=== PATIENT | female | born 1975 | race Caucasian/White ===

== ENCOUNTER 2016-07-25 05:47 | Inpatient (IN) | payer OTHER ==
[~2016-07-25] VITALS: Ht 165.1 cm; Wt 74.8 kg
[2016-07-25] MEDS ORDERED: Benzocaine-Menthol Lozenge 2/Pkg PO PRN ×2 (10:05→11:30)
[2016-07-25] MEDS ORDERED: Alum-Mag Hydrox-Simeth 30 mL Suspension PO PRN ×2 (10:05→11:30)
[2016-07-25] MEDS ORDERED: Magnesium Hydroxide 10 mL Oral Concentration PO PRN ×2 (10:05→11:30)
[2016-07-25] MEDS ORDERED: hydrOXYzine Pamoate 25 mg Capsule PO PRN (11:30)
[2016-07-25 13:35] VITALS: BP 149/105; PULSE 87; RESP 16
--- NOTE | 2016-07-25 14:00 | NUR ---
Nursing Admission Note: Patient arrived on the unit on a gurney from [facility] escorted by EMS and security. Has been REBEKAH'd on a 72 hour hold after a suicide attempt to jump [place] of [place] in which [employer] intervened. Patient reportedly has been drinking a bottle of wine a day and has attempted suicide in the past with pills. States she has been sober for 3 days prior to attempt. Drinks wine to "dull the pain." States her sister has custody of her daughter. Cooperative with admission process. Ate a snack after admission complete. Good appetite at lunch. Flat affect. Will monitor mood and behavior.
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
--- NOTE | 2016-07-25 14:17 | NUR ---
spiritual care: pt request brief visit pt welcomed prayer.
--- NOTE | 2016-07-25 19:51 | NUR ---
Observations 00 to 1930 Pt arrived at 0940. Pt completed admission process and signed all paperwork. Pt was oriented to the unit, given scrubs and shown to room 229. Pt affect and mood was isolative, sullen, depressed and flat. Pt speech was guarded and eye contact was ok. Pt declined to go to groups and unit activities. Pt was minimally social with staff and peers when approached. Pt give short responses when approached. Pt attended meals in D.R. and ate 100% of her meals. Pt maintained behavior throughout the shift. Pt was polite, pleasant and cooperative. Pt was in her room during free time and keeps to herself. Pt took a shower and attended to ADL's. Pt was observed every 15 minutes throughout the shift as ordered.
[2016-07-25] MEDS: LORazepam 1 mg Tablet PO PRN (21:09)
--- NOTE | 2016-07-26 04:17 | NUR ---
Nursing Noc Reported REBEKAH patient on July 25 at 0435 as danger to self. Apparently patient attempted to jump on [address] [address] and was arrested during attemt by park rangers. Pt presents pleasant and cooperative entertaining herself with TV and snacks this evening. Pt participated in evening wrap up group, but did not have goal for today. Continuing to monitor mood behavior,sleep times and medications. [facility]
--- NOTE | 2016-07-26 05:40 | NUR ---
Pt out on unit in evening for group and movie. Noted not sleeping well for many days and hoping things got better. Asleep 2230. Pt observed every 15 minutes as ordered.
[2016-07-26 11:44] VITALS: BP 136/86; PULSE 77; RESP 16
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
--- NOTE | 2016-07-26 17:10 | NUR ---
[id number]. nurs. S: "I haven't forgiven myself I keep having these thoughts that they are coming to get me, it's very real ..I used to drink to forget... O: Pt isolating in bedrm until enc. to come out and eat in afternoon and to help her stop her ruminations, fears and flashbks to past when undertook identity and prosecuted, although now past those proceedings still has periods of being overwhelmed by that experience with delusional and paranoid ideation. Pt reporting that she can maintain no harm contract on unit, pt asking re what she needs to do to be discharged on Thursday and asking about letting her work know about her hospitalization. Pt reports that her cousin is looking after her daughter. P:CHARLES Addendum: 07/26/16 at 1740 by DIDIER LORENZ RN note, missing word above, following identity, should be 'theft'.
--- NOTE | 2016-07-26 18:55 | PCM.PNPSY ---
Subjective Date of Service Jul 26, 2016 Subjective Patient states that she has not had flashbacks or nightmares but has been reclusive to room. When asked about discharge planning, the patient reported, "My cousin has arranged a place, I think it's [facility]. I took out a loan on an ex-boyfriends account. I am going to [facility] for 5 years." Patient is unsure whether she has gone to court or been convicted of any crime. Sleep: 6.5 horus Appetite: poor Suicidal and homicidal ideation: denies Auditory hallucinations: denies Visual hallucinations: denies Other Psychotic Symptoms: possible delusions as above. Anxiety: 0/10 Depression: 7 Current Medications Current Medications Hydroxyzine Pamoate 50 mg Q4H PRN PO Last administered on 07/25/16 10:42; Admin Dose 50 MG; Start 07/25/16 at 10:05 Ibuprofen 600 mg Q6H PRN PO Last administered on 07/25/16 21:11; Admin Dose 600 MG; Start 07/25/16 at 10:05 Lorazepam 1 mg Q4H PRN PO Last administered on 07/25/16 21:09; Admin Dose 1 MG ; Start 07/25/16 at 10:05 Nicotine 1 patch DAILY TOPICAL Last administered on 07/26/16 08:29; Admin Dose 1 PATCH; Start 07/26/16 at 08:30 Nicotine Polacrilex 2 mg Q4H PRN PO Last administered on 07/25/16 21:09; Admin Dose 2 MG; Start 07/25/16 at 10:05 Zolpidem Tartrate START WITH 5 MG AND MAY REP... HS PRN PO Last administered on 07/25/16 21:10; Admin Dose 5 MG; Start 07/25/16 at 10:05 Mental Status Exam Vital Signs Vital Signs Date Time Temp Pulse Resp B/P Pulse Ox O2 Delivery O2 Flow Rate FiO2 07/26/16 11:44 36.6 77 16 136/86 Appearance: Neat/well groomed Attitude: Cooperative Behavior: Overtly anxious Affect: Blunted Mood: Depressed Thought Process/Associations: Tangential Speech Production: Paucity Speech Rate: Lags/Latency Speech Articulation: Normal Thought Content: Negativistic Danger to Self/Suicidal Ideati: None Danger to Others: None Delusions: Paranoid (Endorses possible) Hallucinations: Auditory (Denies), Visual (Denies) Consciousness: Somnolent Orientation: Person, Place, Situation Memory: Short Term Memory (Impaired) Estimate Intellectual Function: Average Attention/Concentration & Cogn: Impaired Insight: Limited Judgement: Poor Mental Health Plan The patient is a 41-year-old female from [place]. The patient was admitted under REBEKAH status with transfer from [facility] after significant near attempt of suicide including jumping [place] [address]. Patient originally felt to be non-psychotic but report during rounds does not appear to be reality based, but will need clarification. [place] AXIS I 1. Major depressive disorder, recurrent type, possible psychotic 2. Posttraumatic stress disorder, chronic. 3. Alcohol use disorder in remission. AXIS II Rule out cluster B personality features. AXIS III None. AXIS IV Stressors are noted for previous alcohol usage, life transition. AXIS V Global assessment of functioning of current 35. Treatments 1. The patient is admitted to the inpatient unit and will be provided a safe and secure environment. 2. The patient is denying current active suicidality and is not in need of a one-to-one at this time. 3. The patient is encouraged to participate with group and milieu activities. 4. The patient will be seen by the treatment team on a daily basis to assess symptoms, side effects and response to treatment. 5. The patient will be started on mirtazapine 30mg po nightly for depression. 6. Consider antipsychotic if report of [facility] time has no basis in reality. 7. Anticipated length of stay is 7-10 days. John Easton MD Jul 26, 2016 15:11
--- NOTE | 2016-07-26 22:26 | NUR ---
Received in evening shift report that pt. had been in bed all of day shift and had missed breakfast and lunch. Received pt. in bed awake and tearful. Pt reported that she had nothing to live for and wanted to . No one cares about me. Pts speech became somewhat pressured and she launched into a story in which she stated she was assisted with obtaining a job and an apartment by someone who had an ulterior motive. She stated that there is a conspiracy against her, and her family and others want to see her put in [facility]. Once I confessed to the police they ripped the rug out from under me. Pt then asked if I had seen "the videos". Later in the shift pt approached me and asked if I was the person she had spoken to and what the conversation was. She said she did not remember the conversation and reported feeling like she has had a premonition and that she was taken out of her body. She stated was losing track of time and did not know what was real. She stated she thinks she had last seen her daughter on Thursday but couldn't be sure. Pt clearly having difficulty processing information, is confused and expressed delusional content. Admits to SI but has no plan at this time and agreed to come to staff if having urges to harm self.
[2016-07-26] MEDS: LORazepam 1 mg Tablet PO PRN (22:58)
--- NOTE | 2016-07-27 02:39 | NUR ---
Observations 1900 to 0700 Pt isolated herself to her room for the night. Pt had a few phone calls last night. Pt first appeared asleep at 21:45 and was observed every 15 minutes through the night.
--- NOTE | 2016-07-27 05:38 | NUR ---
Nursing Noc Pt presents paranoid to strangers, answers questions appropriately, but does not carry conversation. Taking medications and using PRNs as prescribed. monitor behavior/emotional state, quality, times and amount of sleep, use and effect of medication.
[2016-07-27 08:57] LABS: BASOPHILS % (AUTO) 0.4 % (0-3); EOSINOPHILS % (AUTO) 2.3 % (0-5); MONOCYTES % (AUTO) 6.7 % (4-12); Mean Corpuscular Hemoglobin 28.7 pg (27.0-35.0); Mean Corpuscular Volume 87.7 fL (81-100); NEUTROPHILS % (AUTO) 67.9 % (40-74); Platelet Count 281 bil/L (150-400)
--- NOTE | 2016-07-27 15:34 | PCM.PNPSY ---
Subjective Date of Service Jul 27, 2016 Subjective The patient reports the only side effect from mirtazapine so far is that she still feels drowsy this morning. Regarding report yesterday about feeling she might be going to jail, she stated that this is due to her flashbacks to her identity theft charges in 2006 and her fear at that time of going to jail. The patient reports that she feels that her depression is somewhat improved with addition of mirtazapine. She denies that she will be going to jail. Sleep: 8.25 hours per staff, "on and off" per patient. Appetite: She reports that she ate lunch and dinner last night and typically does not eat breakfast and has no appetite for breakfast today but plans to eat lunch. Suicidal and homicidal ideation: denies Auditory hallucinations: denies Visual hallucinations: denies Other Psychotic Symptoms: None Anxiety: 07/11 Depression: 11/08, yesterday 12/08 Current Medications Current Medications Mirtazapine 30 mg HS PO Last administered on 07/26/16 21:10; Admin Dose 30 MG; Start 07/26/16 at 21:00 Nicotine 1 patch DAILY TOPICAL Last administered on 07/27/16 08:23; Admin Dose 1 PATCH; Start 07/26/16 at 08:30 Mental Status Exam Appearance: Neat/well groomed Attitude: Cooperative Behavior: Overtly anxious Affect: Blunted Mood: Depressed Thought Process/Associations: Logical/Sequential, Goal Directed Speech Production: Paucity Speech Rate: Normal Speech Articulation: Normal Thought Content: Appropriate Danger to Self/Suicidal Ideati: None Danger to Others: None Delusions: Paranoid (Denies) Hallucinations: Auditory (Denies), Visual (Denies) Consciousness: Somnolent Orientation: Person, Place, Situation Memory: Short Term Memory (Impaired) Estimate Intellectual Function: Average Attention/Concentration & Cogn: Impaired Insight: Limited Judgement: Limited Result Diagram: 07/27/1681207/27/16812 Mental Health Plan The patient is a 41-year-old female from [place]. The patient was admitted under REBEKAH status with transfer from [facility] after significant near attempt of suicide including jumping [place] [address]. The patient's reported fear of going to jail appears to be related to a flashback rather than psychotic symptoms. She appears to be responding to mirtazapine. [place] AXIS I 1. Major depressive disorder, recurrent type, without psychosis 2. Posttraumatic stress disorder, chronic. 3. Alcohol use disorder in remission. AXIS II Rule out cluster B personality features. AXIS III None. AXIS IV Stressors are noted for previous alcohol usage, life transition. AXIS V Global assessment of functioning of current 35. Medications Mirtazapine 30 mg nightly Lorazepam 1 mg every 4 hours when necessary anxiety or agitation Zolpidem 5 mg nightly when necessary insomnia Hydroxyzine 50 mg every 4 hours when necessary anxiety or agitation Treatments 1. The patient is admitted to the inpatient unit and will be provided a safe and secure environment. 2. The patient is denying current active suicidality and is not in need of a one-to-one at this time. 3. The patient is encouraged to participate with group and milieu activities. 4. The patient will be seen by the treatment team on a daily basis to assess symptoms, side effects and response to treatment. 5. Continue mirtazapine 30mg po nightly for depression. 6. Anticipated length of stay is 7-10 days. John Easton MD Jul 27, 2016 15:34
--- NOTE | 2016-07-27 17:31 | NUR ---
Tax Record Clerk./ cLauriemLaurie S.:"I feel a little bit sleepy." O.: met with pt. and MD together in pt.'s room. She was in bed sleeping in the middle of the morning. She was able to talk briefly. She complained about feeling sleepy. She complained about back pain. She denied SI/HI, denied AH/VH. She rated anxiety at 2/10 and depression at 6/10. She continued having flashbacks about going to [facility]. Her cousin came to visit and she provided additional information regarding pt.'s situation. Cousin is very supportive and wanted to know about pt.'s treatment plan. A.: pt. is cooperative, isolative, quiet, has a flat affect. P.: monitor behavior, monitor for meds intake, follow care plan.
--- NOTE | 2016-07-27 18:24 | NUR ---
[id number]. nurs. S: "I have had a lot of losses..how long would ETOH tx take....? who is the public improvement inspector... I was just so tired I had not slept in days... I feel a lot better...." O: Pt at times continuing to express paranoid and delusional ideation to staff and family re her responsibility for crimes and fears that police are after her and staff involved. At other times pt denying any of these concerns. Pt visited by her cousin who is caring for pt's 7 y.o. and was both suspicious of and expressing trust to cousin during her visit. P: pt given motrin for lower backpain in afternoon partially effective, Pt refused offer of egg crate mattress. Pt out more in milieu later part of day but not seeking interaction with peers. On phone with family and daughter. Pt ambivalent not able to sign DAYA yet for cousin .main support person.. P:CHARLES
--- NOTE | 2016-07-28 04:23 | NUR ---
Observations from [id number] Pt isolated in her room all evening. Pt did not attend wrap up group and appeared asleep at 2130 and has remained asleep throughout the night. Pt has been monitored every 15 minutes as directed.
--- NOTE | 2016-07-28 06:01 | NUR ---
Nursing Noc Pt has remained a quiet presence on the unit. Minimal interaction with peers and staff. She briefly watched TV and had a snack, otherwise she spent a lot of time in her room. She took scheduled medication and prn Motrin 600mg for "chronic low back pain" rated 7/10. Ambien 5mg po prn received for sleep with good effect. Pt remains vague & guarded upon interaction with this nursing staff. No noted or expressed SI this shift. She has remained asleep this shift since 2129 with no noted distress or awakening per protocol checks. Total sleep over 8.5 hours.
[2016-07-28 10:24] VITALS: BP 127/90; PULSE 72; RESP 10
--- NOTE | 2016-07-28 13:41 | NUR ---
Nursing note 7-3pm O) isolates in room, has lower back pain 5/10 decreasing to 3/10 after Motrin , states depression and anxiety 3/10 denies SI, PRN nicotine lozenge given twice, dressed and well groomed, pleasant on approach good eye contact A) cooperative, isolates, guarded, denies SI P) monitor for safety and encourage participation in treatment
--- NOTE | 2016-07-28 14:39 | NUR ---
Magnetic Resonance Technologist./ c.m. S.:"I'm ok, I'm really ok..." O.: met with pt. in a private room. She slept "ok" last night. She denied SI/HI, denied AH/VH, denied paranoid/delusional thoughts, denied "flashbacks". She rated depression at 3/10 and anxiety at 3/10. She talked about her alcohol abuse and how it effected all her life and life of her family members. She agreed to go to [facility] and outpatient alcohol treatment if needed. She said that she felt "better" overall. She talked about her SA and what led to that moment. "It was just a cry for help because I could kill myself multiple times prior to that. I love my daughter." She was concerned about her future as a parent and her job. She was in and out of her room but mostly keeping to herself. A.: pt. is cooperative, isolative, very tearful and looks anxious. She is much more clear in her thoughts today. P.: monitor behavior, explore options of [facility], work on anxiety and stress management skills, explore options of outpatient treatment, possible court tomorrow; follow care plan.
--- NOTE | 2016-07-28 16:17 | NUR ---
spiritual care: follow up conversational visit. pt reflected on recent experiences, "very kind" staff and sense of emotional stability with help of medications. Pt explored her thoughts about grief, hope, sense of purpose and love deysi toward dtr. Pt thoughtful throughout and shared her sense of spirituality as it relates to her coping/healing.
--- NOTE | 2016-07-28 16:55 | PCM.PNPSY ---
Subjective Date of Service Jul 28, 2016 Subjective I spent 30 minutes both reviewing treatment plan and providing supportive/ educational psychotherapy. I spent more than 50% of the time counseling the patient. I reviewed the treatment plan with the patient and discussed options available including the potential risks, benefits and side effects. Mary reports a symptoms of severe depression and significant difficulty with mood stability. The intensity of her suicidal ideation is markedly decreased. Staff reports that she has been isolative and not able to participate well in one-to-one unit and group activities. She slept 8.5 hours and denies acute suicidal ideation. She denies medication side effects. Patient was able to identify her medications and what they were used to treat. She appeared to understand the need for medications by the questions she asked during our discussion. Current Medications Current Medications Mirtazapine 30 mg HS PO Last administered on 07/27/16t 20:35; Admin Dose 30 MG; Start 07/26/16 at 21:00 Mental Status Exam Vital Signs Vital Signs Date Time Temp Pulse Resp B/P Pulse Ox O2 Delivery O2 Flow Rate FiO2 07/28/16 10:24 35.8 72 10 127/90 Appearance: Neat/well groomed Attitude: Cooperative Behavior: Overtly anxious Affect: Blunted Mood: Depressed Thought Process/Associations: Logical/Sequential, Goal Directed Speech Production: Paucity Speech Rate: Normal Speech Articulation: Normal Thought Content: Appropriate Danger to Self/Suicidal Ideati: None Danger to Others: None Delusions: Paranoid (Denies) Hallucinations: Auditory (Denies), Visual (Denies) Consciousness: Somnolent Orientation: Person, Place, Situation Memory: Short Term Memory (Impaired) Estimate Intellectual Function: Average Attention/Concentration & Cogn: Impaired Insight: Limited Judgement: Limited Result Diagram: 07/27/16 0813 07/27/16 0813 Mental Health Plan Mary is a 41-year-old female who was transported to [facility] after a near attempt of suicide by trying to jump off the [place] [address]. Two park rangers prevented her from jumping and took her off of the bridge. She did attempt to jump twice as they were attempting to rescue her. She indicated that she had been feeling increasingly hopeless and worthless. She identified that she currently lives independently but previously lived with her cousin and cousin's boyfriend for approximately four years. She reports that she has a 7-year-old daughter also in her current care. She reports that she does have a previous history of depression with treatment in her college years in [place], [place]. She indicated that she saw both a therapist and was on medication including Wellbutrin and Zoloft at that time. She reports that she has never been hospitalized on a psychiatric unit. She reports a significant willingness to engage in both individual therapy and medication treatment stating that it helped in the past and that she is ready to do it again. In reviewing her current level of depression, she admitted to feelings of hopelessness, helplessness, worthlessness. She admitted to difficulties with primary and secondary insomnia. Noted decreased concentration, feelings of apathy, amotivation and anhedonia. She admitted to fleeting suicidal thoughts over the past month and indicated that everything came to the surface Today to 07/28/16 the intensity of her suicidal ideation is decreased but is still present. [place] AXIS I 1. Major depressive disorder, recurrent type, without psychosis 2. Posttraumatic stress disorder, chronic. 3. Alcohol use disorder in remission. AXIS II Rule out cluster B personality features. AXIS III None. AXIS IV Stressors are noted for previous alcohol usage, life transition. AXIS V Global assessment of functioning of current 35. Medications Mirtazapine 30 mg nightly Lorazepam 1 mg every 4 hours when necessary anxiety or agitation Zolpidem 5 mg nightly when necessary insomnia Hydroxyzine 50 mg every 4 hours when necessary anxiety or agitation Treatments 1. The patient is admitted to the inpatient unit and will be provided a safe and secure environment. 2. The patient is denying current active suicidality and is not in need of a one-to-one at this time. 3. The patient is encouraged to participate with group and milieu activities. 4. The patient will be seen by the treatment team on a daily basis to assess symptoms, side effects and response to treatment. 5. Continue mirtazapine 30mg po nightly for depression. 6. Anticipated length of stay is 7-10 days. Edgar House MD Jul 28, 2016 16:55
[2016-07-28] MEDS: LORazepam 1 mg Tablet PO PRN (18:40)
--- NOTE | 2016-07-28 18:51 | NUR ---
Obs Dayshift [id number] Pt is not attending all groups, little to no participation. Did attend morning meeting, quiet, little to no engagement. Pt is on the phone more than anything else. Pt asks for her phone to get numbers and goes on facebook, texting, etc.. and staff has to take the phone away. Pt has poor eye contact. Not engaging w/ any peers. Good ADL's, Good meals
--- NOTE | 2016-07-28 22:18 | NUR ---
NURSING NOTE [id number] Mood= "anxious" Affect= quiet, flat Behavior= kept to her room for much of the shift; met with hospital hearing officer, made multiple phone calls. Was a little more visible later in the evening; attended wrap-up group and then sat out in the DR for a while after but minimally social w/peers. Med compliant. Thought processes= endorses anxiety, some depression, no AH/VH/SI. Pt. is guarded and admits she has difficulty "opening up" PRNs Ativan 1 mg, Motrin @ 18:40 for 3/10 lower back pain. Ambien 5 mg @ HS
--- NOTE | 2016-07-29 01:51 | NUR ---
Observations 1900 to 0700 Pt isolated herself to her room for the night. Pt had a few phone calls last night as usual. Pt first appeared asleep at 22:00 and was observed every 15 minutes through the night.
--- NOTE | 2016-07-29 05:04 | NUR ---
canvas baster 11pm to 7am Pt slept soundly throughout the night, in no acute distress. Monitored q 15 minutes for safety,location and accountability.
--- NOTE | 2016-07-29 15:43 | NUR ---
nursing note 7am-7pm S)" I am nervous about what I am going to do after leaving here...going back into the work force If I have a job and the judgement I will face" O) states her biggest support is her friends, used portable phone to make calls, anxiety and depression 08/08, denies SI, back pain 10/08 medicated with PRN with little effect, went to court today for continuance till Thursday, cooperative, attended groups, ate meals, groomed and dressed in own clothes A) affect a little brighter with occasional smile, isolates in room, cooperative P) monitor effectiveness of medication, encourage participation in treatment
[2016-07-29] MEDS: LORazepam 1 mg Tablet PO PRN (19:49)
--- NOTE | 2016-07-29 20:32 | NUR ---
Obs Dayshift [id number] Pt was out of her room more today than the past few days. Pt has slightly better eye contact, little engaging w/ peers. Pt is calm, quiet, reserved, guarded. Pt did request to speak w/ a staff member today about AA and outside resources. Pt still spending large amount of time in her room/bed, either resting or on the phone. Ok ADL's, Good meals
--- NOTE | 2016-07-30 02:14 | NUR ---
Observations 1900 to 0700 Pt isolated herself to her room for the night. Pt did attend wrap up group. Pt had a few phone calls last night as usual. Pt first appeared asleep at 22:00 and was observed every 15 minutes through the night.
--- NOTE | 2016-07-30 05:45 | NUR ---
Nursing Noc Pt out to common area much of the evening then noted to sleep throughout the rest of the shift starting at 2215. Plan reported as court continue until Thursday. Continue to monitor mood, behavior, medications and sleep times by Q15 minute safety checks.
--- NOTE | 2016-07-30 15:31 | NUR ---
[id number]. nurs. S: "I would really like to leave today I have so much to do...go back to work, if I have not lost my job.. get my daughter back, it's a lot of extra work for my cousin... I am going to go to AA... A: Pt with flat, sad to constricted affect, denying any pxs re craving for ETOH, or of SI, pt reports that her depression is currently a /10 and anxiety, re discharging and facing her support and work environment, 10/08. Pt does brighter when talks of feeling that the burden of responsibility she feels with family losses, has significantly lifted of her chest and gestures with hand to chest and the weight she was carrying there. O: Pt has completed safety plan appropriately will have support people who can provide transport home pt does isolate in bedrm will respond but does not seek interaction, pt has brochure for AA and voices intention to attend. P:CNCP
--- NOTE | 2016-07-30 15:39 | PCM.PNPSY ---
Subjective Date of Service Jul 30, 2016 Subjective I spent 30 minutes both reviewing treatment plan and providing supportive/ educational psychotherapy. I spent more than 50% of the time counseling the patient. I reviewed the treatment plan with the patient and discussed options available including the potential risks, benefits and side effects. Mary reports a decrease in symptoms of depression and improved mood stability today. Her suicidal ideation has resolved and she is beginning to future plan how to take care of herself.. Staff reports that she has been able to participate well in one-to-one unit and group activities. She slept 8 hours and denies acute suicidal ideation. She denies medication side effects. Patient was able to identify her medications and what they were used to treat. She appeared to understand the need for medications by the questions she asked during our discussion. Mental Status Exam Appearance: Neat/well groomed Attitude: Pleasant, Cooperative Behavior: No unusual behavior Affect: Well Modulated/Appropriate Mood: Euthymic Thought Process/Associations: Logical/Sequential, Goal Directed Speech Production: Normal, Paucity Speech Rate: Normal Speech Articulation: Normal Thought Content: Appropriate Danger to Self/Suicidal Ideati: None Danger to Others: None Hallucinations: Auditory (Denies), Visual (Denies) Consciousness: Alert Orientation: Person, Place, Situation Memory: Grossly Intact Estimate Intellectual Function: Average Attention/Concentration & Cogn: Grossly Intact Insight: Limited Judgement: Limited Result Diagram: 07/27/16 0813 07/27/16 0813 Mental Health Plan Mary is a 41-year-old female who was transported to [facility] after a near attempt of suicide by trying to jump off the [place]. Two park rangers prevented her from jumping and took her off of the bridge. She did attempt to jump twice as they were attempting to rescue her. She indicated that she had been feeling increasingly hopeless and worthless. She identified that she currently lives independently but previously lived with her cousin and cousin's boyfriend for approximately four years. She reports that she has a 7-year-old daughter also in her current care. She reports that she does have a previous history of depression with treatment in her college years in [place], [place]. She indicated that she saw both a therapist and was on medication including Wellbutrin and Zoloft at that time. She reports that she has never been hospitalized on a psychiatric unit. She reports a significant willingness to engage in both individual therapy and medication treatment stating that it helped in the past and that she is ready to do it again. In reviewing her current level of depression, she admitted to feelings of hopelessness, helplessness, worthlessness. She admitted to difficulties with primary and secondary insomnia. Noted decreased concentration, feelings of apathy, amotivation and anhedonia. She admitted to fleeting suicidal thoughts over the past month and indicated that everything came to the surface Today to 07/28/16 the intensity of her suicidal ideation is decreased but is still present. [place] AXIS I 1. Major depressive disorder, recurrent type, without psychosis 2. Posttraumatic stress disorder, chronic. 3. Alcohol use disorder in remission. AXIS II Rule out cluster B personality features. AXIS III None. AXIS IV Stressors are noted for previous alcohol usage, life transition. AXIS V Global assessment of functioning of current 35. Medications Mirtazapine 30 mg nightly Lorazepam 1 mg every 4 hours when necessary anxiety or agitation Zolpidem 5 mg nightly when necessary insomnia Hydroxyzine 50 mg every 4 hours when necessary anxiety or agitation Treatments 1. The patient is admitted to the inpatient unit and will be provided a safe and secure environment. 2. The patient is denying current active suicidality and is not in need of a one-to-one at this time. 3. The patient is encouraged to participate with group and milieu activities. 4. The patient will be seen by the treatment team on a daily basis to assess symptoms, side effects and response to treatment. 5. Continue mirtazapine 30mg po nightly for depression. 6. Mary has made significant improvement and will likely be ready for discharge and 24-72 hours depending on the quality of her safety plan were able to help her develop.. Edgar House MD Jul 30, 2016 15:39
--- NOTE | 2016-07-30 17:18 | NUR ---
Obs Dayshift Pt spent most of the day in her room, laying in bed napping or on the phone. Pt has little to no engagement w/ peers, eats meals in front of the TV and back to her room. Pt is up more in the evening to watch TV or a movie. Pt is quiet, reserved, guarded, poor eye contact, poor participation. Good ADL's, Good meals
[2016-07-30] MEDS: LORazepam 1 mg Tablet PO PRN (21:06)
--- NOTE | 2016-07-31 02:04 | NUR ---
Observations 1900 to 0700 Pt isolated herself to her room for the night. Pt did attend wrap up group. Pt first appeared asleep at 22:30 and was observed every 15 minutes through the night.
--- NOTE | 2016-07-31 05:36 | NUR ---
Nursing Noc Pt remained flat, paranoid and distant this shift. Appeared to be in common area watching TV but is not interacting with staff or patients.. Taking medications as prescribed
--- NOTE | 2016-07-31 11:19 | NUR ---
[id number]. Discharge note. Pt states that she is ready to discharge and has friend who can provide transport home midday, pt reports that she has no SI, that her depression is 3/10 and anxiety 5/10 related to being back in the community and working on her self care plan. Pt states that she may look into event planning rather than pub centred work to decreased that impact on her ETOH dependence hx. Pt stating that she has counselling available and intends to follow up with outpt AA attendance. Pt has safety plan completed and requested letter to cover date of her hospitalization for work. Pt reports meds helpful and needs prescription. Dr pereyra on discharge plan. Addendum: 07/31/16 at 1622 by DIDIER LORENZ RN Pt discharged at 1258, her prescription for Remeron faxed to [facility] in [place] and pt verbalized understanding of f/u apt and med plan with intake with [facility] for chem. dep. tx. Pt had letter covering hosp. Pt with even mood looking forward to discharge with some apprehension.
[2016-07-31] MEDS ORDERED: MIRT15TA6 PO (11:49)
[2016-07-31] MEDS: LORazepam 1 mg Tablet PO PRN (11:52)
--- NOTE | 2016-07-31 11:52 | PCM.DIMED ---
Discharge Instructions Date of Service Jul 31, 2016 Dates of Hospitalization Jul 25, 2016 at 09:41 Discharge Diagnosis Discharge Diagnosis AXIS I 1. Major depressive disorder, recurrent type, without psychosis 2. Posttraumatic stress disorder, chronic. 3. Alcohol use disorder in remission. AXIS II Rule out cluster B personality features. AXIS III None. AXIS IV Stressors are noted for previous alcohol usage, AXIS V Global assessment of functioning of current 45 Medication Instructions I Strongly encouraged patient to follow up with outpatient care: 1-Recommended patient takes medication as prescribed and not alter this unless under the direct care of a provider: Remeron 30 mg at bedtime 2-Recommend client refrain from recreational drugs and alcohol while taking psychiatric medications. 3-Recommend client start a 12 step program to deal with issues of addiction. 4-Recommend patient attempt to find a therapist or group to deal with impulse control and interpersonal relationship conflicts Diet No restrictions Activity No restrictions Call your provider Fever or Chills Patient Instructions Point to follow-up with Dr. [facility] within the next 2 weeks Client to attend 90 AA meetings in 90 days. Client to seek out therapy through [facility] plan Follow-up with PCP in: 2 weeks Edgar House MD Jul 31, 2016 11:52
--- NOTE | 2016-07-31 12:33 | DIS ---
[address] [address] DISCHARGE SUMMARY PATIENT: CIERRA MA : 1975 MR#: [id number] ADMIT: 07/25/2016 JOB ID: [id number] DIS: IDENTIFICATION: Patient is a 41-year-old female from [place]. She was admitted under an REBEKAH status with transfer from [facility] after a near-suicide attempt by jumping [place]. SUMMARY OF PRESENT ILLNESS: The patient is a 41-year-old white female who was transferred at [facility] after attempting to jump off the [place]. Two rangers prevented her from jumping and took her off the bridge. She did attempt to jump twice as they were attempting to rescue her. She indicated that she had been feeling increasingly hopeless and worthless. She currently lives independently but previously she had lived with her cousin and her cousin's boyfriend for approximately four years. She reports she has a 7-year-old daughter also in her current care. She has had treatment for depression in the past at [facility] in [place], [place]. She indicated she saw a therapist and was on Wellbutrin and Zoloft at that time. She has never been psychiatrically hospitalized. She reports a significant willingness to engage in individual and medication treatment. Her current level of depression is qualified for a diagnosis of major depressive disorder. Patient also has a significant alcohol use problem. She tends to drink alcohol nightly and she is realizing that this is a problem and she needs to stop. HOSPITAL COURSE: Client was admitted to our unit to provide her with a high degree of safety through structure and active adult engagement she received here. We had her participate in one-to-one, unit, and group activities focused on improving coping skills, reality based thinking, and coming up with a safety plan should suicidal ideation recur as an outpatient. Client participated well in all the above activities. She was also started on a course of Remeron at 30 mg h.s. She tolerated this well and on a daily basis showed slight but progressive improvement in mood and thought organization. MENTAL STATUS EXAMINATION: Client neatly, stylishly dressed. Good eye contact. Calm, pleasant. Mood euthymic. Affect congruent. Normal intensity. Thought process: Client is able to relate a coherent history. Coherent, logical, and spontaneous. Thought content: Significant for themes of future planning. She detailed a reasonable safety plan for me. Denied psychotic symptoms review. Insight and judgment markedly improved. Impulse control highly contained. Reality testing intact. Competence to handle current stressors has returned to baseline. DISCHARGE DIAGNOSIS: [place] I: 1. Major depressive disorder, recurrent type. 2. Post-traumatic stress disorder. 3. Alcohol use disorder. [place] II: Deferred. [place] III: None. [place] IV: Moderate. [place] V: Current Global Assessment of Functioning equal to 45. DISCHARGE MEDICATIONS: Remeron 30 mg h.s. ACTIVITY AND DIET: Recommend client refrain from recreational drugs and alcohol and not change her psychiatric medications unless under direction and supervision. Recommend she attend 90 AA meetings in 90 days. CONDITION ON DISCHARGE: Good. PROGNOSIS: Good. DISCHARGE FOLLOWUP: Client to see Dr. Fuentes, her primary care physician, within the next two weeks. Client to apply through the [facility] system for an appropriate therapist.
--- NOTE | 2016-07-31 18:19 | NUR ---
Delivery Recruiter/Counselor: S: "I want to do an out-patient type of treatment." O: Met with patient. Patient slept 8+ hours last night per staff. Patient denied S/I and H/I. She also denied auditory and visual hallucinations. Out-patient appointment: Rafat at [facility], 08/06/16 at 12:00pm. A: Patient is cooperative, hopeful, brighter, fair insight, fair judgement. P: Follow care plan, coordinate with out-patient providers.
--- NOTE | 2016-07-31 19:29 | NUR ---
Storage Center Manager/Counselor: S: "I want to do an out-patient type of treatment." O: Met with patient. Patient slept 8+ hours last night per staff. Patient denied S/I and H/I. She also denied auditory and visual hallucinations. Out-patient appointment: Rafat at [facility], 08/06/16 at 12:00pm. A: Patient is cooperative, hopeful, brighter, fair insight, fair judgement. P: Follow care plan, coordinate with out-patient providers.
--- NOTE | 2016-08-14 15:03 | PROG NOTE ---
[address] [address] PROGRESS NOTE PATIENT: CIERRA MA : 1975 MR#: [id number] ADMIT: 07/25/2016 JOB ID: [id number] DATE: 07/29/2016 SUBJECTIVE: I spent 30 minutes reviewing the treatment plan, providing supportive and educational psychotherapy with the patient. She continues to report symptoms of depression and difficulty with mood stability. The intensity of these symptoms is decreasing. Staff reports she is participating actively and well during one-to-one unit and group activities. She slept well last night. She denies medication side effects. MENTAL STATUS: Appearance: Neatly groomed. Attitude: Cooperative. Behavior: Overtly anxious. Affect: Labile mood, depressed. Thought process: Logical, goal directed. Thought content appropriate. Danger to suicidal ideation: Client denies. Delusion: Client denies. Hallucinations: Client denies. Orientation: Alert and oriented to person, place and date. Insight and judgment limited. DIAGNOSES: AXIS I 1. Major depressive disorder, recurrent, without psychosis. 2. Posttraumatic stress disorder. 3. Alcohol use disorder, in remission. MEDICATIONS: Mirtazapine 30 h.s. TREATMENT: Client is being provided with high degree of safety through the structure and active adult engagement she receives here. We are having her participate in one-to-one unit and group activities focused on improving coping skills and coming up with a safety plan should suicidal ideation recur as an outpatient. Continue current treatment plan. Anticipate additional 3-5 days.
== END 2016-07-31 12:58 | disposition home or self-care (01) | DRG 885 ==
LOC: MHC 09:41
PROVIDERS: ADMIT Psychiatry & Neurology Psychiatry; ATTEND Psychiatry & Neurology Psychiatry
DX: F33.9 Major depressive disorder, recurrent, unspecified (principal); R45.851 Suicidal ideations; F43.10 Post-traumatic stress disorder, unspecified; F10.10 Alcohol abuse, uncomplicated

== ENCOUNTER 2016-08-19 09:35 | Inpatient (IN) | payer OTHER ==
[~2016-08-19] VITALS: Ht 162.6 cm; Wt 152.4 kg
[~2016-08-19 09:35] MED LIST: MIRT15TA6 PO
[2016-08-19] MEDS ORDERED: LORazepam 1 mg Tablet PO PRN (11:40)
[2016-08-19] MEDS ORDERED: Alum-Mag Hydrox-Simeth 30 mL Suspension PO PRN (11:40)
[2016-08-19] MEDS ORDERED: Magnesium Hydroxide 10 mL Oral Concentration PO PRN (11:40)
[2016-08-19] MEDS ORDERED: Benzocaine-Menthol Lozenge 2/Pkg PO PRN (11:40)
[2016-08-19] MEDS ORDERED: hydrOXYzine Pamoate 25 mg Capsule PO PRN (11:40)
[2016-08-19 12:20] VITALS: BP 156/114; PULSE 106; RESP 17
--- NOTE | 2016-08-19 14:48 | HP ---
[address] [address] HISTORY AND PHYSICAL PATIENT: CIERRA MA : 1975 MR#: [id number] ADMIT: 08/19/2016 JOB ID: [id number] IDENTIFICATION: The patient is a 41-year-old female who was admitted on a voluntary basis with transfer from [facility] due to significant increasing factors of depression, anxiety and suicidal thoughts. She reportedly had no specific plan or intent. She reports that over the past several weeks, despite interventions of current medications including Remeron 30 mg q.h.s., she has had increasing struggles with feelings of hopelessness, despair and struggles with beliefs that she has committed wrongdoings including fraudulent applications for a student loan. She reports that in the past she had actually filed student loan applications under her ex-boyfriend and also her father. She reports that she has been attending local AA chapter meetings in [place] and states that she feels obligated to correct the wrongdoings. She reports that she has been experiencing significant increased difficulties with insomnia. She identified that she has been struggling with noncompliance of her Remeron, stating that she has been driving around the community smoking excessively, up to three packs a day. She reports that she has a history of employment with a local [employer] and was the director appointment. She indicates that she is fearful that she potentially has lost her job. She reports that her child age seven is currently residing with her cousins who she has had conflict in the past. In meeting with myself, director case and medical student, the patient appeared to be quite anxious and distracted throughout the course of conversation. She denied any recent usage of substances but did admit to increasing nicotine usage. She reports that she has signed up for DBT and had an appointment scheduled sometime today. She also has seen her outpatient family practitioner for her medication management. She indicated that she has not yet scheduled with individual therapy. PAST MEDICAL HISTORY: She reports no recent medical changes. She denied any recent surgeries, fractures, or head trauma. ALLERGIES: Substantial for allergy to PENICILLIN G. CURRENT MEDICATIONS: Include Remeron 30 mg q.h.s. PHYSICAL EXAMINATION: She denied physical exam of current. I have reviewed records from [facility] and agree with their documentation. PAST PSYCHIATRIC HISTORY: Substantial for prior hospitalization in July 2016. Initially cared by myself, follows up with Dr. House. Discharge diagnoses included PTSD, major depressive disorder and alcohol use disorder. She reportedly has had one prior hospitalization in her early 20s as well. SOCIAL HISTORY: Currently, the patient lives in an apartment dwelling with her child. She reportedly indicates that the child is currently in the care and custody of a cousin. She is currently employed but fearful that she has lost her job. She admits to previous usage of alcohol but indicates that she has really cut back. She has been attending AA chapter meetings on a regular basis. ABUSE HISTORY: Not reviewed. FAMILY HISTORY: Not reviewed with this current hospitalization but with previous review of records, the patient indicated that both her mother and father were treated for depression. She had a sibling brother also treated for depression and a sibling brother that committed suicide. There is also an extensive history of alcoholism. DEVELOPMENTAL HISTORY: The patient was born and raised in the [facility]. Graduated from high school. Attended college in [place], [place] but did not receive a formal degree. MENTAL STATUS EXAMINATION: General appearance as noted above. The patient reportedly is quite anxious on approach. She makes intermittent eye contact. Her speech is of normal tone, frequency and volume. Her mood is anxious. Her affect is guarded. Her thought process shows no evidence of random flight of ideas, loose or disconnection of thoughts. Her thought content, she admitted to fleeting suicidal thoughts. No evidence of homicidal ideation. She denies any active hallucinations or delusions. She was alert, oriented to time and place. Her attention and concentration intact. Memory untested. Insight and judgment are poor. IMPRESSION: AXIS I 1. Major depressive disorder, recurrent type, nonpsychotic. 2. Posttraumatic stress disorder, chronic. 3. Alcohol use disorder, in remission. AXIS II Cluster B personality features. AXIS III None. AXIS IV Stressors are noted for life transition. AXIS V Global Assessment of Functioning current 35. PLAN: 1. Recommendation is for continuation of Remeron 30 mg q.h.s. 2. Release is to be signed for [facility] Dependency Treatment Program. Patient underwent an assessment last week for possible engagement in both IOP and residential care. 3. Release is to be signed for DBT curriculum engagement. 4. Recommendation is for continuation of supportive therapies. 5. Re-initiation of Remeron 30 mg q.h.s. as noted.
--- NOTE | 2016-08-19 15:27 | NUR ---
Obs Dayshift Pt is Isolating to her room, in bed. Pt is polite, but not engaging w/ peers, and little w/ staff. Pt is very polite, quiet, depressed, guarded. Poor eye contact, head down. Pt is getting up for meals, but not ready to participate in groups or activities yet. Good ADL's, Ok meals
--- NOTE | 2016-08-19 15:30 | NUR ---
Testing And Regulating Chief./ c.m. S.:"I'm having trouble processing things... I need to take responsibility... I'm trying to figure it out." O.: met with pt. for initial interview. Pt. is vol. She was discharged from [facility] on July [facility], 2016 and she tried to follow up with her outpatient treatment. "I didn't drink at all after my discharge from here and everything started coming back. It was too much! I couldn't handle it..." Pt. denied SI/HI, denied AH/VH, rated depression at 5/10 and anxiety at 5/10 also. She had difficulty following a conversation and became very tearful and confused. A.: pt. is cooperative, isolative, confused, scattered, internally preoccupied, paranoid and delusional. P.: monitor behavior, engage pt. in the program, provide safety in the unit, follow care plan.
[2016-08-19 17:27] VITALS: BP 138/95; PULSE 89; RESP 16
--- NOTE | 2016-08-19 17:55 | NUR ---
Nursing: Admission and day shift: Mary arrived ( voluntary admission) from [facility] by ambulance at 1105. She was familiar with this facility because she left here less than 3 weeks ago. S: Pt described that over her adult life, she drank a lot and had blackouts. "I've been an alcoholic all my life. I don't know what I did during those periods. I am here fo figure out the truth. I'm just beginning to be able to feel. My emotions are overwhelming me." O: Pt confirmed that she had been staying with a cousin and her 7 yr old daughter. She went to the police station, confessed what she thought was a crime she had committed, and was taken to the hospital. Rated anxiety and depression at 7/10. Suicidal thoughts as "more lately". Signed n0 harm contract. Denied pain. Described what might be AH as "When I am alone, I can sometimes hear talking. But I can't make out what they are saying." Pt sobbed when it was mentioned that her brother committed suicide. BP at time of admission was 156/114 p 90. At 1630 it was 138/95 p 89. Pt's PCP in [place] was contacted and list of meds obtained. On August 05, pt had been prescribed Losartin 100 mg 1/2 tab for a week and then 1 mg daily. When I asked pt what she took for BP medicine, she stated Naprosyn and said she had not taken BP pills regularly. A: Anxious. Depressed. Suicidal. Tearful. Overwhelmed. P: Support her return as a voluntary patient. BP control.
--- NOTE | 2016-08-20 01:00 | NUR ---
Observations 1900 to 0700 Pt was in her room when my shift started and gas remained there for the enitre night. Pt first appeared asleep at 19:30 and was observed every 15 minutes through the night as directed.
[2016-08-20] MEDS ORDERED: LOSA100T3 PO (03:21)
--- NOTE | 2016-08-20 03:36 | NUR ---
Nursing Note [id number] Pt isolating to room upon arrival to unit. Pt didn't get up for meals, snack or group. Pt affect flat, guarded and minimal eye contact noted. Pt was compliant with HS meds, attempted to converse with pt regarding current situation and pt unable or unwilling to talk at that time. Q15 min safety checks done per protocol, no distress noted. Pt noted asleep at 1930 and been asleep since. WCTM sleep, safety, behavior
[2016-08-20 10:13] VITALS: BP 150/100; PULSE 95; RESP 16
--- NOTE | 2016-08-20 12:09 | PROG NOTE ---
[address] [address] PROGRESS NOTE PATIENT: CIERRA MA : 1975 MR#: [id number] ADMIT: 08/19/2016 JOB ID: [id number] DATE: 08/20/2016 CHIEF COMPLAINT: "I need to correct the wrong. I need to go to alf and pay the consequences." HISTORY OF PRESENT ILLNESS: As stated above, the patient met with myself and the medical student and continues to perseverate of her wrongdoings with factors of guilt and shame. She reports that she had actually fraudulently filed for student loans for $50,000 to $60,000 under both her ex-boyfriend and her father, who is now , and continues to suffer from perseverative guilt and shame. She made repeated statements of feeling inadequate and openly identifying that she needs to follow the principles of AA and be held accountable. She made identification that she did have contact with her DBT therapist Pa Angel and indicated that she was thinking about possibly discharging today. She was encouraged to continue her length of stay with probable discharge on Thursday with the intent to return back to outpatient services with clarification of chemical dependency assessment which was recently completed. She had significant splitting behaviors, left the interview process, requesting discharge, and promptly returned within 1-2 minutes requesting further process with multiple tears about her fears of leaving the facility. OBJECTIVE: On mental status exam, she was casually dressed in hospital scrub attire. She makes inappropriate eye contact at times with both piercing eye contact and smiling inappropriately. Her speech was of normal tone, frequency, and volume. Her mood was alexithymic. Her affect was inappropriate. Her thought process shows no evidence of racing thoughts, flight of ideas, loose or disconnected thinking. Her thought content: She denied any evidence of suicidal or homicidal ideation. No evidence of paranoia. No evidence of hallucinations or delusions. She continues to identify with significant feelings of guilt and shame which she is unable to resolve. She is alert, oriented to time and place. Her attention and concentration are fleeting. Insight and judgment are poor. PHYSICAL EXAMINATION: Vital signs are current. Temperature is 36.4, pulse 95, respirations 16, BP 150/100. MEDICATION REVIEW: Includes Remeron 30 mg q.h.s., Ativan 1 mg q.4 h. p.r.n. for anxiety. ASSESSMENT: [place] I: 1. Major depressive disorder, recurrent type, nonpsychotic. 2. Post-traumatic stress disorder, chronic. 3. Alcohol use disorder. [place] II: 1. Borderline personality features. 2. Histrionic personality features. [place] III: Rule out hypertension. [place] IV: Stressors are noted for ongoing life transition difficulties, history of alcohol use disorder. [place] V: Global Assessment of Functioning of current is 35. PLAN: 1. Recommendations for possible discharge later today at patient request. I do not have grounds to petition for continuance. 2. Recommendations for followup with chemical dependency treatment access of care. Calls will be placed by the rn case management. 3. Recommendations for possible initiation of antihypertensives based on the patient's current status of blood pressure. Consideration of usage of clonidine or Tenex based on her coexisting factors of anxiety.
[2016-08-20] MEDS ORDERED: MIRT15TA6 PO (13:08)
--- NOTE | 2016-08-20 13:08 | PCM.DIMED ---
Discharge Instructions Date of Service Aug 20, 2016 Dates of Hospitalization Aug 19, 2016 at 11:07 Discharge Diagnosis Discharge Diagnosis MDD recurrent severe nonpsychotic PTSD chronic ETOH Use DO in remission Activity No restrictions Khoi Avalos DO Aug 20, 2016 13:08
--- NOTE | 2016-08-20 15:25 | NUR ---
Nursing Discharge Note: Patient cooperative with most of the discharge process. While waiting for the CM discharge instructions, patient left without reviewing them or getting a copy. Acknowledges understanding of MD d/c instructions and has a copy with them upon leaving unit at 1515. Belongings accounted for and with patient. [facility]. Hard copies with patient. Patient denies harmful thoughts and hallucinations at this time.
--- NOTE | 2016-08-20 15:45 | DIS ---
[address] [address] DISCHARGE SUMMARY PATIENT: CIERRA MA : 1975 MR#: [id number] ADMIT: 08/19/2016 JOB ID: [id number] DIS: ADMITTING DIAGNOSES: AXIS I 1. Major depressive disorder, recurrent type, nonpsychotic. 2. Posttraumatic stress disorder, chronic. 3. Alcohol use disorder, in remission. AXIS II Cluster B personality features. AXIS III None. AXIS IV Stressors are noted for life transition. AXIS V Global Assessment of Functioning current 35. DISCHARGE DIAGNOSES: AXIS I 1. Major depressive disorder, recurrent type, nonpsychotic. 2. Posttraumatic stress disorder, chronic. 3. Alcohol use disorder, in remission. AXIS II Borderline personality probable. AXIS III None. AXIS IV Stressors noted for life transition. AXIS V Global Assessment of Functioning current 40. REASON FOR ADMISSION: The patient was a 41-year-old female admitted on a voluntary basis with transfer from [facility]. During the course of hospitalization the patient openly admitted to significant recent discontinuation of her Remeron and also significant struggles with her sobriety status. She underwent a chemical dependency assessment within the past week with recommendations pending. She reportedly stated that she has been struggling with coming to terms with the status of her alcoholism in the past and how it has left an impact on her children, on her family. She identified that she was struggling with feelings of hopelessness but denied any evidence of acute imminent danger. Throughout hospital course, the patient participated in limited interactions with staff. She isolated to her room. She showed significant struggles with clear limited investment to change. On the day of discharge, she requested a formal discharge. I had no reason to pursue court-ordered interventions and encouraged her to continue with her outpatient followup. CONDITION AT THE TIME OF DISCHARGE: On the patient's mental status exam she was bright, cooperative, interactive. She had been very tearful and had significant disjointed presentation prior with open identification that she was struggling and wanted staff to make choices for her on how to deal with her current status of life. She openly reflected that she was feeling guilty about previous fraudulent fine of a student loan and indicated that she needed to pursue some form of legal charges. There was questionable validity and reliability throughout much of her interactions, and it was felt that she was stuck in a dialectical state of presentation. Implementation of DBT was strongly encouraged, and the patient agreed to follow up with outpatient care providers. Her mood was neutral. Her affect was incongruent at points. Her thought process showed no evidence of racing thoughts, flight of ideas, loose or disconnected thinking. Thought content, she denied any evidence of current suicidal, homicidal ideation. There was no evidence of active hallucinations, delusions, or paranoia. She was alert, oriented to time, place, situation. Her attention and concentration intact. Her insight and judgment were deemed poor. PLAN: 1. Recommendation is for follow up with her previous DBT curriculum, Pa Angel, through [employer] professional building. 2. Recommendation is for followup with recommendations of chemical dependency treatment as per case resource manager. 3. Follow up with prescribers for her medications as per case resource manager. 4. Continuation of Remeron 30 mg q.h., 1 month supply, no refills. Reason for usage, antidepressant.
--- NOTE | 2016-08-20 19:04 | NUR ---
Plant Director/Counselor: S: "I'm doing better and I want to discharge." O: Patient slept 9.5+ hours last night as per staff. Patient denies S/I and H/I. She denies auditory and visual hallucinations. Out-poa A: Patient is cooperative, polite, depressed, anxious, disorganized, overwhelmed. P: Follow your care plan, coordinate out-patient providers. Addendum: 08/20/16 at 1909 by [facility] appointments: Pa, counselor at [facility], 08/21/16 at 9:30am and Dr. Fuentes, Primary care Physician, 08/25/16 at 12:45pm. A: Patient is cooperative, bright, hopeful, future oriented. P: Follow care plan.
== END 2016-08-20 15:15 | disposition home or self-care (01) | DRG 885 ==
LOC: MHC 11:07
PROVIDERS: ADMIT Psychiatry & Neurology Psychiatry; ATTEND Psychiatry & Neurology Psychiatry
DX: F33.9 Major depressive disorder, recurrent, unspecified (principal); F43.12 Post-traumatic stress disorder, chronic; F10.21 Alcohol dependence, in remission; F17.200 Nicotine dependence, unspecified, uncomplicated